=== PATIENT | male | born 1985 | race Caucasian/White ===

== ENCOUNTER 2018-06-21 07:05 | Emergency (ER) | payer OTHER ==
[2018-06-21] MEDS ORDERED: NS 1,000 ML IV ONE (07:27)
--- NOTE | 2018-06-21 07:32 | EDPHY ---
H & P Stated Complaint: LLQ ABD PAIN STARTED , INCREASED PAIN LAST WEEK, Time Seen by Provider: 06/21/18 07:24 HPI/ROS: CHIEF COMPLAINT: Abdominal pain HISTORY OF PRESENT ILLNESS: The patient is a 32-year-old man with history of diverticulitis who comes to the emergency department complaining of 2 days left lower quadrant pain sometimes radiating to the right lower quadrant. Also radiating to his testicles. No hematuria or dysuria. No fever. Mild nausea but no vomiting. He did take Zofran at home this morning with moderate improvement. He states it feels somewhat similar to diverticulitis he had a 2016 however that time it did not radiate to his testicles. No history of abdominal surgeries. Severity: Moderate Modifying factors: Slight improvement with Zofran REVIEW OF SYSTEMS: Constitutional: denies: chills, fever, recent illness, recent injury EENTM: denies: blurred vision, double vision, nose congestion Respiratory: denies: cough, shortness of breath Cardiac: denies: chest pain, irregular heart rate, lightheadedness, palpitations Gastrointestinal/Abdominal: See HPI Genitourinary: denies: dysuria, frequency, hematuria, pain Musculoskeletal: denies: joint pain, muscle pain Skin: denies: lesions, rash, jaundice, bruising Neurological: denies: headache, numbness, paresthesia, tingling, dizziness, weakness Hematologic/Lymphatic: denies: blood clots, easy bleeding, easy bruising Immunologic/allergic: denies: HIV/AIDS, transplant 10 systems reviewed and negative except as noted EXAM: GENERAL: Well-appearing, well-nourished and in no acute distress. HEAD: Atraumatic, normocephalic. EYES: Pupils equal round and reactive to light, extraocular movements intact, sclera anicteric, conjunctiva are normal. ENT: TMs normal, nares patent, oropharynx clear without exudates. Moist mucous membranes. NECK: Normal range of motion, supple without lymphadenopathy or JVD. LUNGS: Breath sounds clear to auscultation bilaterally and equal. No wheezes rales or rhonchi. HEART: Regular rate and rhythm without murmurs, rubs or gallops. ABDOMEN: Soft, nontender, normoactive bowel sounds. No guarding, no rebound. No masses appreciated. No hernias appreciated, normal testicular and penile exam. BACK: No CVA tenderness, no spinal tenderness, step-offs or deformities EXTREMITIES: Normal range of motion, no pitting or edema. No clubbing or cyanosis. NEUROLOGICAL: Cranial nerves II through XII grossly intact. Normal speech, normal gait. 5/5 strength, normal movement in all extremities, normal sensation , normal reflexes PSYCH: Normal mood, normal affect. SKIN: Warm, dry, normal turgor, no visible rashes or lesions. Source: Patient Exam Limitations: No limitations - Medical/Surgical History Hx Asthma: No Hx Chronic Respiratory Disease: No Hx Diabetes: No Hx Cardiac Disease: No Hx Renal Disease: No Hx Cirrhosis: No Hx Alcoholism: No Hx HIV/AIDS: No Hx Splenectomy or Spleen Trauma: No Other PMH: DIVERTICULIITS - Family History Significant Family History: No pertinent family hx - Social History Smoking Status: Never smoked Alcohol Use: Sober Drug Use: None Constitutional: Initial Vital Signs Temperature (C) 36.6 C 06/21/18 07:15 Heart Rate 62 06/21/18 07:15 Respiratory Rate 18 06/21/18 07:15 Blood Pressure 117/82 H 06/21/18 07:15 O2 Sat (%) 95 06/21/18 07:15 O2 Delivery Mode Room Air Allergies/Adverse Reactions: No Known Allergies Allergy (Unverified 06/21/18 07:15) Home Medications: Medication Instructions Recorded Hyoscyamine Oral Liquid 06/21/18 Zofran 06/21/18 Medical Decision Making - Diagnostics Imaging Results: Imaging Impressions Abdomen CT 06/21/18 08:19 Impression: 1. Mild constipation. No diverticulitis, enteritis, appendicitis, or regional inflammatory process. 2. No intraabdominal mass, lymphadenopathy or abscess. Findings discussed with Emergency Department physician, Dimas Patel on 06/21 at 9:04 a.m. Cosigned: Mik Crowder M.D. Imaging: Discussed imaging studies w/ banking and finance instructor Radiologist ED Course/Re-evaluation: 9:15 a.m. Patient's lab work and CT are very reassuring. His abdominal exam is nontender. We discussed protocol in these cases which is to allow him to return home and follow up in 24 hr for re-evaluation. He and his were comfortable with this plan. He declines prescription medications. He already has Zofran at home. We discussed indications for returning sooner. Differential Diagnosis: Partial list of the Differential diagnosis considered include but were not limited to; diverticulitis, kidney stone, urinary tract infection, hernia, appendicitis and although unlikely based on the history and physical exam, I also considered ischemia, volvulus, spinal injury. I discussed these differential diagnoses and the plan with the patient as well as the usual and expected course. The patient understands that the diagnosis is provisional and that in medicine we are not always correct and that further workup is often warranted. Usual and customary warnings were given. All of the patient's questions were answered. The patient was instructed to return to the emergency department should the symptoms at all worsen or return, otherwise to followup with the physician as we discussed. - Data Points Laboratory Results: 06/21/18 06/21/18 07:51 07:37 POC Sodium 144 mEq/L mEq/L (135-145) POC Potassium 3.9 mEq/L mEq/L (3.3-5.0) POC Chloride 104.0 mEq/L mEq/L (97-110) POC Total CO2 28 mEq/L mEq/L (22-31) POC BUN 16 mg/dL mg/dL (7-23) POC Creatinine 1.2 mg/dL mg/dL (0.7-1.3) POC Glucose 86 mg/dL mg/dL (70-100) POC Calcium 9.2 mg/dL mg/dL (8.5-10.4) POC Total Bilirubin 0.6 mg/dL mg/dL (0.1-1.4) POC GGT < 5 IU/L L IU/L (5-65) POC AST 25 IU/L IU/L (17-59) POC ALT 18 IU/L L IU/L (21-72) POC Alk Phosphatase 66 IU/L IU/L (38-126) POC Total Protein 6.9 g/dL g/dL (6.3-8.2) POC Albumin 3.7 g/dL g/dL (3.5-5.0) POC Amylase 55 IU/L IU/L (30-110) Medications Given: Discontinued Medications Sodium Chloride (Ns) 1,000 mls @ 0 mls/hr IV EDNOW ONE; Wide Open PRN Reason: Protocol Stop: 06/21/18 07:28 Last Admin: 06/21/18 07:43 Dose: 1,000 mls Point of Care Test Results: CBC CBC Collection Date 06/21/18 CBC Collection Time 07:34 WBC 5.0 RBC 5.25 HGB 16.0 HCT 46.7 PLT 161 Neut # 2.5 Neut 48.8 LYMPH # 2.2 LYMPH 44.5 Other WBC # 0.3 Other WBC 6.7 MCV 89.0 Chemistry 06/21/18 06/21/18 07:51 07:37 POC Sodium 144 mEq/L mEq/L (135-145) POC Potassium 3.9 mEq/L mEq/L (3.3-5.0) POC Chloride 104.0 mEq/L mEq/L (97-110) POC Total CO2 28 mEq/L mEq/L (22-31) POC BUN 16 mg/dL mg/dL (7-23) POC Creatinine 1.2 mg/dL mg/dL (0.7-1.3) POC Glucose 86 mg/dL mg/dL (70-100) POC Calcium 9.2 mg/dL mg/dL (8.5-10.4) POC Total Bilirubin 0.6 mg/dL mg/dL (0.1-1.4) POC GGT < 5 IU/L L IU/L (5-65) POC AST 25 IU/L IU/L (17-59) POC ALT 18 IU/L L IU/L (21-72) POC Alk Phosphatase 66 IU/L IU/L (38-126) POC Total Protein 6.9 g/dL g/dL (6.3-8.2) POC Albumin 3.7 g/dL g/dL (3.5-5.0) POC Amylase 55 IU/L IU/L (30-110) Liver Function Tests LFT Collection Date 06/21/18 Urine Dip Collection Date 06/21/18 Collection Time 08:15 Specific [place] (1.002-1.030) 1.020 PH (5.0-7.5) 6.5 Leukocytes (Negative) Negative Nitrites (Negative) Negative Protein (Negative) Negative Glucose (Negative) Negative Ketones (Negative) Negative Urobilnogen (0.2-1.0 EU) 0.2 Bilirubin (Negative) Negative Blood (Negative) Negative Departure - Departure Disposition: Home, Routine, Self-Care Clinical Impression: Abdominal pain Qualifiers: Abdominal location: unspecified location Qualified Code(s): R10.9 - Unspecified abdominal pain Condition: Fair Instructions: Acute Abdominal Pain (ED) Referrals: Edna Anne V, PAC [Primary Care Provider] - 1 day, if not improved ED,PHYSICIAN ONDUTY [Medical Doctor] - 1 day, if not improved Stand Alone Forms: Work Excuse
[2018-06-21] MEDS ORDERED: IOPAMIDOL (ISOVUE-300) 100 ML BTL ONE (08:23)
[2018-06-21 08:53] VITALS: BP 121/84
== END 2018-06-21 09:23 | disposition home or self-care (01) ==
LOC: CED 07:05
DX: R10.32 Left lower quadrant pain (principal); E86.9 Volume depletion, unspecified; Z87.19 Personal history of other diseases of the digestive system
CPT/HCPCS: 74177-PO; 80048-PO; 80076-PO; 82150-PO; Q9967